=== PATIENT | male | born 1940 | race African-American/Black ===

== ENCOUNTER 2016-12-03 01:53 | Observation (INO) | payer MEDICARE, OTHER ==
[2016-12-03] VITALS (7 sets, daily range): BP systolic 132–162; BP diastolic 65–74; PULSE 18–86; RESP 16–20; TEMP 96.8–98.2; O2SAT 94–97
[~2016-12-03] VITALS: Ht 170.2 cm; Wt 80.0 kg
[~2016-12-03 01:53] MED LIST: ASPI81TA82 PO; ATEN1TAB74 PO; CANA300T PO; CIPR500T2 PO; GLUCTAB PO; HYDR-2768 PO; LOSA100T PO; NEXI40CA PO; ROSU40 PO; ZOFR4TAB3 SL
[2016-12-03] MEDS ORDERED: LOSA100T PO (02:08)
[2016-12-03] MEDS ORDERED: CANA300T PO (02:08)
[2016-12-03] MEDS ORDERED: MULT1TAB50 (02:08)
[2016-12-03] MEDS ORDERED: OMEP40CA2 PO (02:08)
[2016-12-03] MEDS ORDERED: POTA-255 PO (02:08)
[2016-12-03] MEDS ORDERED: ASPI81CH37 CHEW (02:08)
[2016-12-03] MEDS ORDERED: MONT10TA4 PO (02:08)
[2016-12-03] MEDS ORDERED: ATEN100T PO (02:08)
[2016-12-03] MEDS ORDERED: HYDR25TA5 PO (02:08)
[2016-12-03] MEDS ORDERED: METF1000 PO (02:08)
[2016-12-03] MEDS ORDERED: SODIUM CHLORIDE 0.9% FLUSH 10 ML FLUSH IVF PRN (02:30)
[2016-12-03] MEDS ORDERED: ASPIRIN 81 MG CHEW TAB PO ONE (02:30)
[2016-12-03 02:54] LABS: AUTOMATED NEUTROPHIL # 6.5 TH/MM3 (1.8-7.7); BASOPHIL # 0.1 TH/MM3 (0-0.2); BASOPHIL % 0.8 % (0.0-2.0); EOSINOPHIL # 0.1 TH/MM3 (0-0.4); EOSINOPHIL % 1.3 % (0.0-4.0); HEMATOCRIT 42.5 % (39.0-51.0); HEMO FLAGS DIFF FINAL; LYMPH % 23.5 % (9.0-44.0); LYMPHOCYTE # 2.3 TH/MM3 (1.0-4.8); MEAN CELL VOLUME 87.6 FL (80.0-100.0); MEAN CORPUSCULAR HEMOGLOBIN 29.8 PG (27.0-34.0); MONO % 8.8 % (0.0-8.0); NEUT % 65.6 % (16.0-70.0); PLATELET COUNT 267 TH/MM3 (150-450); RED BLOOD COUNT 4.85 MIL/MM3 (4.50-5.90); RED CELL DISTRIBUTION WIDTH 13.8 % (11.6-17.2); WHITE BLOOD COUNT 9.9 TH/MM3 (4.0-11.0)
--- NOTE | 2016-12-03 03:02 | RADRPT ---
EXAM DATE/TIME: 12/03/2016 02:23 [facility] COMPARISON: No previous studies available for comparison. INDICATIONS : Chest pain starting tonight. MEDICAL HISTORY : Diabetes mellitus type II. Hypertension Carcinoma, prostatic. GERD SURGICAL HISTORY : Prostatectomy. Inguinal hernia repair. ENCOUNTER: Initial ACUITY: 1 day PAIN SCORE: 6/10 LOCATION: Bilateral chest FINDINGS: A single view of the chest demonstrates the lungs to be symmetrically aerated without evidence of mas s, infiltrate or effusion. The cardiomediastinal contours are unremarkable. Osseous structures are intact. CONCLUSION: No acute disease. Jerardo Rojas MD on December 03, 2016 at 3:01 Board Certified Radiologist. This report was verified electronically.
[2016-12-03 03:09] LABS: ALT (GPT) 23 U/L (12-78); ANION GAP 8 MEQ/L (5-15); AST (GOT) 14 U/L (15-37); BICARBONATE 30.1 MEQ/L (21.0-32.0); BLOOD UREA NITROGEN 18 MG/DL (7-18); CHLORIDE 100 MEQ/L (98-107); GLOMERULAR FILTRATION RATE 73 ML/MIN (>89); MAGNESIUM 1.8 MG/DL (1.5-2.5); POTASSIUM 3.7 MEQ/L (3.5-5.1); SODIUM (NA) 138 MEQ/L (136-145)
[2016-12-03 03:13] LABS: APTT (PATIENT) 26.1 SEC (24.3-30.1); PROTHROMBIN TIME - PATIENT 10.8 SEC (9.8-11.6)
[2016-12-03 03:15] LABS: ALKALINE PHOSPHATASE 79 U/L (45-117); TOTAL BILIRUBIN ADULT 0.3 MG/DL (0.2-1.0)
--- NOTE | 2016-12-03 04:12 | PD ---
HPI Chief Complaint: Chest Pain Time Seen by Provider: 02:06 Travel History International Travel<30 days: No Contact w/Intl Traveler<30days: No Traveled to known affect area: No History of Present Illness HPI Is a 76-year-old man who presents to the emergency department complaining of chest pain in the mid part of his chest starting just tonight about 45 minutes prior to arrival. Improved some after belching. He does not have the pain now. He has no history of similar symptoms. No associated shortness of breath nausea vomiting or sweating. He does have a history of indigestion and reflux. He takes omeprazole. Otherwise has been feeling generally well and healthy. No history of heart disease. He does not smoke tobacco. His last stress test about a year or so ago with Dr. Atkinson. History Past Medical History Narrative Medical Hypertension Diabetes Hyperlipidemia GERD Tetanus Vaccination: Unknown Influenza Vaccination: Yes Social History Alcohol Use: No Tobacco Use: No Allergies-Medications (Allergen,Severity, Reaction): Coded Allergies: Nitroglycerin (Verified Adverse Reaction, Severe, HYPOTENSION W/ SL;; STATETS TOLERATES NITROPASTE OR PATCH, 12/03/16) Reported Meds & Prescriptions Reported Meds & Active Scripts Active Reported Potassium (Potassium Gluconate) 600 Mg Tablet 99 Mg PO DAILY Omeprazole 40 Mg Cap 40 Mg PO DAILY Centrum Men's Tablet (Multivit-Mins/Iron/Folic/Lycop) 1 Each Tablet Aspirin Low Dose (Aspirin) 81 Mg Chew 81 Mg CHEW DAILY Montelukast (Montelukast Sodium) 10 Mg Tab 10 Mg PO HS Invokana (Canagliflozin) 300 Mg Tab 300 Mg PO DAILY Take before 1st meal of day. Hydrochlorothiazide 25 Mg Tab 25 Mg PO DAILY Atenolol 100 Mg Tab 100 Mg PO DAILY Losartan (Losartan Potassium) 100 Mg Tab 100 Mg PO DAILY Metformin (Metformin HCl) 1,000 Mg Tab 1,000 Mg PO BIDPC With meals Review of Systems Except as stated in HPI: all other systems reviewed are Neg Physical Exam Narrative GENERAL: Well-appearing 76 year-old man, no acute distress. SKIN: Focused skin assessment warm/dry. HEAD: Atraumatic. Normocephalic. EYES: Pupils equal and round. No scleral icterus. No injection or drainage. ENT: No nasal bleeding or discharge. Mucous membranes pink and moist. NECK: Trachea midline. No JVD. CARDIOVASCULAR: Regular rate and rhythm. No murmur appreciated. RESPIRATORY: No accessory muscle use. Clear to auscultation. Breath sounds equal bilaterally. GASTROINTESTINAL: Abdomen soft, non-tender, nondistended. Hepatic and splenic margins not palpable. MUSCULOSKELETAL: No obvious deformities. No clubbing. No cyanosis. No edema. NEUROLOGICAL: Awake and alert. No obvious cranial nerve deficits. Motor grossly within normal limits. Normal speech. PSYCHIATRIC: Appropriate mood and affect; insight and judgment normal. Data Data Last Documented VS Vital Signs Date Time Temp Pulse Resp B/P Pulse Ox O2 Delivery O2 Flow Rate FiO2 12/03/16 02:03 16 12/03/16 01:56 98.1 86 162/74 97 Room Air Orders Electrocardiogram (12/03/16 02:19) Complete Blood Count With Diff (12/03/16 02:19) Comprehensive Metabolic Panel (12/03/16 02:19) Magnesium (Mg) (12/03/16 02:19) Prothrombin Time / Inr (Pt) (12/03/16 02:19) Act Partial Throm Time (Ptt) (12/03/16 02:19) Troponin I (12/03/16 02:19) Chest, Single Ap (12/03/16 02:19) Ecg Monitoring (12/03/16 02:19) Bilateral Bp Monitoring (12/03/16 02:19) Iv Access Insert/Monitor (12/03/16 02:19) Oximetry (12/03/16 02:19) Oxygen Administration (12/03/16 02:19) Aspirin Chew (Aspirin Chew) (12/03/16 02:30) Sodium Chloride 0.9% Flush (Ns Flush) (12/03/16 02:30) Labs Laboratory Tests Test 12/03/16 02:25 White Blood Count 9.9 TH/MM3 Red Blood Count 4.85 MIL/MM3 Hemoglobin 14.5 GM/DL Hematocrit 42.5 % Mean Corpuscular Volume 87.6 FL Mean Corpuscular Hemoglobin 29.8 PG Mean Corpuscular Hemoglobin 34.0 % Concent Red Cell Distribution Width 13.8 % Platelet Count 267 TH/MM3 Mean Platelet Volume 8.3 FL Neutrophils (%) (Auto) 65.6 % Lymphocytes (%) (Auto) 23.5 % Monocytes (%) (Auto) 8.8 % Eosinophils (%) (Auto) 1.3 % Basophils (%) (Auto) 0.8 % Neutrophils # (Auto) 6.5 TH/MM3 Lymphocytes # (Auto) 2.3 TH/MM3 Monocytes # (Auto) 0.9 TH/MM3 Eosinophils # (Auto) 0.1 TH/MM3 Basophils # (Auto) 0.1 TH/MM3 CBC Comment DIFF FINAL Differential Comment Prothrombin Time 10.8 SEC Prothromb Time International 1.0 RATIO Ratio Activated Partial 26.1 SEC Thromboplast Time Sodium Level 138 MEQ/L Potassium Level 3.7 MEQ/L Chloride Level 100 MEQ/L Carbon Dioxide Level 30.1 MEQ/L Anion Gap 8 MEQ/L Blood Urea Nitrogen 18 MG/DL Creatinine 1.18 MG/DL Estimat Glomerular Filtration 73 ML/MIN Rate Random Glucose 100 MG/DL Calcium Level 8.8 MG/DL Magnesium Level 1.8 MG/DL Total Bilirubin 0.3 MG/DL Aspartate Amino Transf 14 U/L (AST/SGOT) Alanine Aminotransferase 23 U/L (ALT/SGPT) Alkaline Phosphatase 79 U/L Troponin I LESS THAN 0.02 NG/ML Total Protein 7.4 GM/DL Albumin 3.5 GM/DL [facility] Medical Decision Making Medical Screen Exam Complete: Yes Emergency Medical Condition: Yes Interpretation(s) My review of EKG: My review of EKG: Normal sinus rhythm at a rate of 85, normal axis, borderline leftward axis, poor R-wave progression, no definite evidence of acute ischemia. LABS: CBC is unremarkable. CMP is unremarkable. Coags are unremarkable. Chest x-ray negative. Differential Diagnosis Chest pain, ACS, hepatobiliary disease, gastritis or reflux, pancreatitis, other Narrative Course Medical decision making the 76 year-old woman presents with chest pain, now resolved, mildly suspicious for ACS. Multiple risk factors. Overall looks well. Recommend admission to the chest pain Center for further evaluation. Diagnosis Primary Impression: Chest pain Admitting Information Admitting Physician Requests: Mitch Frederick MD Dec 03, 2016 04:12
[2016-12-03] MEDS ORDERED: SODIUM CHLORIDE 0.9% FLUSH 10 ML FLUSH IV FLUSH PRN (04:15)
[2016-12-03 08:07] LABS: CREATINE KINASE 86 U/L (39-308)
[2016-12-03] MEDS ORDERED: SODIUM CHLORIDE 0.9% FLUSH 10 ML FLUSH IV FLUSH SCH (09:00)
--- NOTE | 2016-12-03 09:13 | HHI.HP ---
HPI Primary Care Physician Juli Hernández MD Chief Complaint Chest pressure History of Present Illness 76-year-old male history of hypertension, diabetes, and hyperlipidemia presents to the emergency room for further evaluation of chest pressure. Onset last evening prior to going to bed. Location of sternal characterized as pressure. Severity was 6/10. Nonradiating. Duration approximately 1015 minutes. No associated symptoms. No known precipitating factors. Relieving factors he believes possibly belching. History of GERD follows with Dr. Chopra. Review of Systems General: No fatigue,weakness, fever, chills, recent illness, or change in appetite. Has been in his general state of health. HEENT: No HILARIO, no vision changes, no dysphasia CV: As stated above. No current chest pain or pressure. RESP: No SOB, cough, wheeze, recent URI, or history of asthma GI: No nausea, vomiting, bowel changes, diarrhea, constipation, pain, distention , melena, or blood in the stool. Recent endoscopic and colonoscopy with Dr. Chopra. No unintentional weight gain or weight loss. : No dysuria, urgency, frequency. History of prostate cancer (1999) in remission. EXT: No lower leg edema, no paraesthesias MS: No discomfort or change in ROM, rarely requires cane for ambulation. 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 No LOC or motor/sensory deficits. PSYCH: No anxiety, depression SKIN: No rashes, no concerning lesions Past Family Social History Allergies: Coded Allergies: Nitroglycerin (Verified Adverse Reaction, Severe, HYPOTENSION W/ SL;; STATETS TOLERATES NITROPASTE OR PATCH, 12/03/16) Past Medical History Diabetes, hypertension, hyperlipidemia, prostate cancer, GERD Past Surgical History Hernia repair, prostatectomy 1999 Reported Medications Reported Potassium (Potassium Gluconate) 600 Mg Tablet 99 Mg PO DAILY Omeprazole 40 Mg Cap 40 Mg PO DAILY Centrum Men's Tablet (Multivit-Mins/Iron/Folic/Lycop) 1 Each Tablet Aspirin Low Dose (Aspirin) 81 Mg Chew 81 Mg CHEW DAILY Montelukast (Montelukast Sodium) 10 Mg Tab 10 Mg PO HS Invokana (Canagliflozin) 300 Mg Tab 300 Mg PO DAILY Take before 1st meal of day. Hydrochlorothiazide 25 Mg Tab 25 Mg PO DAILY Atenolol 100 Mg Tab 100 Mg PO DAILY Losartan (Losartan Potassium) 100 Mg Tab 100 Mg PO DAILY Metformin (Metformin HCl) 1,000 Mg Tab 1,000 Mg PO BIDPC With meals Active Ordered Medications Current Medications Medications (Trade) Dose Ordered Sig/[place] Route Start Time Stop Time Status Last Admin (NS Flush) 2 ml UNSCH PRN IVF 12/03/16 02:30 (NS Flush) 2 ml UNSCH PRN IV FLUSH 12/03/16 04:15 (NS Flush) 2 ml BID IV FLUSH 12/03/16 09:00 Family History Neck her to be toward for early onset cardiovascular disease. Father age 59stroke. Mother age 86-cancer. Social History Known hypertension, hyperlipidemia, and diabetes. Lifelong nonsmoker. Denies any alcohol or illegal drug use. Past cardiac testing Lexiscan approximately one year agounremarkable. 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 Physical Exam Vital Signs Vital Signs Date Time Temp Pulse Resp B/P Pulse Ox O2 Delivery O2 Flow Rate FiO2 12/03/16 08:22 96.8 18 18 132/71 96 12/03/16 06:03 85 12/03/16 05:32 97.6 86 18 136/67 94 12/03/16 05:05 87 17 140/66 97 12/03/16 04:19 97 21 12/03/16 02:03 16 12/03/16 01:56 98.1 86 16 162/74 97 Room Air Physical Exam GENERAL: Alert WN, WD, NAD, pleasant, obese, Sarah male HEAD: NC, AT, balding EYES: Sclera clear, arcus and muddy. Conjunctiva without injection, pupils equal and round NECK: Supple, no masses, trachea midline CV: RRR, without murmur, rub, gallop, no JVD, S1-S2 no S3-S4. No carotid bruits. Left chest scar. RESP: Clear lungs throughout bilateral, no crackles, wheeze, rhonchi, symmetrical chest rise, nonlabored, able to speak in full sentences ABD: Soft, NT, ND, no masses, positive bowel tones, obese EXT: Pulses +24, no dependent edema MS: Normal tone 4 extremities, nontender, no obvious deformities, full range of motion NEURO: CN II through CN XII grossly intact, motor strength 5/5, gait WNL PSYCH: A+O 3, pleasant affect, appropriate speech, appropriate mood and affect , insight and judgment SKIN: Normal turgor, normal texture, no lesions, no rashes, brisk cap refill, even hair distribution Laboratory Laboratory Tests Test 12/03/16 12/03/16 02:25 05:08 White Blood Count 9.9 Red Blood Count 4.85 Hemoglobin 14.5 Hematocrit 42.5 Mean Corpuscular Volume 87.6 Mean Corpuscular Hemoglobin 29.8 Mean Corpuscular Hemoglobin 34.0 Concent Red Cell Distribution Width 13.8 Platelet Count 267 Mean Platelet Volume 8.3 Neutrophils (%) (Auto) 65.6 Lymphocytes (%) (Auto) 23.5 Monocytes (%) (Auto) 8.8 Eosinophils (%) (Auto) 1.3 Basophils (%) (Auto) 0.8 Neutrophils # (Auto) 6.5 Lymphocytes # (Auto) 2.3 Monocytes # (Auto) 0.9 Eosinophils # (Auto) 0.1 Basophils # (Auto) 0.1 CBC Comment DIFF FINAL Differential Comment Prothrombin Time 10.8 Prothromb Time International 1.0 Ratio Activated Partial 26.1 Thromboplast Time Sodium Level 138 Potassium Level 3.7 Chloride Level 100 Carbon Dioxide Level 30.1 Anion Gap 8 Blood Urea Nitrogen 18 Creatinine 1.18 Estimat Glomerular Filtration 73 Rate Random Glucose 100 Calcium Level 8.8 Magnesium Level 1.8 Total Bilirubin 0.3 Aspartate Amino Transf 14 (AST/SGOT) Alanine Aminotransferase 23 (ALT/SGPT) Alkaline Phosphatase 79 Troponin I LESS THAN 0.02 LESS THAN 0.02 Total Protein 7.4 Albumin 3.5 Total Creatine Kinase 86 Result Diagram: 12/03/1622412/03/16224 Imaging Last Impressions Chest X-Ray 12/03/16218 Signed Impressions: Service Date/Time: Saturday, December 03, 2016 02:23 - CONCLUSION: No acute disease. Jerardo Rojas MD Course EKG NSR, left axis deviation, non-specific T waves changes Assessment and Plan Assessment and Plan #1 Chest painadmitted chest pain center. Ruled out with 2 sets of EKGs and cardiac enzymes. Seen and evaluated by Dr. Obie Olivera. Will proceed with Lexiscan due to patient's reported difficulty with balance. If unremarkable will discharge later this afternoon. Patient agreeable to plan of care. #2 GERDcontinue omeprazole, follow up with #3 Diabeteshold oral anti-glycemic, SSI low dose #4 Hypertensioncontinue losartan, atenolol, HCTZ #5 Hyperlipidemiamedication not listed on med rec, will continue upon discharge Karon Weathers Dec 03, 2016 09:13
--- NOTE | 2016-12-03 09:22 | PD.CARD.PN ---
Subjective Subjective Remarks CARDIOLOGY ATTENDING NOTE DISCUSSED WITH LAVATORY ATTENDANT HPI: PLEASANT 76 YO BM DEVELOPED MID CHEST PRESSURE LAST NIGHT HE WAS GOING TO BED. HE HAS A LONG HX OF GERD FOLLOWED BY [facility]. THE PRESSURE WAS 6/10 MID CHEST NON RADIATING, LASTING ABOUT 10 MINUTES AND RELIEVED BY BELCHING. NO ASSOCIATED SYMPTOMS. IT WAS GONE BY THE TIME HE REACHED THE ED. HE WAS EVALUATED ABOUT A YEAR AGO BY DR. BARAJAS WITH A CHEM ETT WHICH WAS NEGATIVE. HOWEVER HE HAS A HX OF HTN, DM, LIPIDS SO AT RISK. O: GEN OBESE WNWD BM NAD HEENT BALDING, SCAR BEHIND L EAR, HEARING DEC L GEOVANNI EOMI EOL R&L ARCUS AND MUDDY NECK NO JVD, M, N, BRUITS CHEST SCAR L NO RWR CLEAR TO AP CV RSR, NO GRM ABD OBESE NO M, G, R EXT NO CCE NEURO BALANCE OFF A BIT SINCE SURGERY L EAR A; CP ATYPICAL BUT RO ACS GERD HTN DM CP ANGLE TUMOR L EAR 5 YRS AGO P: LUIS SINCE PT HAS POOR BALANCE IF NEG DISCH TO FO WITH GI, PCP Objective Vital Signs / I&O Vital Signs Date Time Temp Pulse Resp B/P Pulse Ox O2 Delivery O2 Flow Rate FiO2 12/03/16 08:22 96.8 18 18 132/71 96 12/03/16 06:03 85 12/03/16 05:32 97.6 86 18 136/67 94 12/03/16 05:05 87 17 140/66 97 12/03/16 04:19 97 21 12/03/16 02:03 16 12/03/16 01:56 98.1 86 16 162/74 97 Room Air I/O 12/02/16 12/02/16 12/02/16 12/03/16 12/03/16 12/03/16 07:00 15:00 23:00 07:00 15:00 23:00 Intake Total 0 ml Balance 0 ml Intake Oral 0 ml Laboratory Laboratory Tests Test 12/03/16 12/03/16 02:25 05:08 White Blood Count 9.9 TH/MM3 Red Blood Count 4.85 MIL/MM3 Hemoglobin 14.5 GM/DL Hematocrit 42.5 % Mean Corpuscular Volume 87.6 FL Mean Corpuscular Hemoglobin 29.8 PG Mean Corpuscular Hemoglobin 34.0 % Concent Red Cell Distribution Width 13.8 % Platelet Count 267 TH/MM3 Mean Platelet Volume 8.3 FL Neutrophils (%) (Auto) 65.6 % Lymphocytes (%) (Auto) 23.5 % Monocytes (%) (Auto) 8.8 % Eosinophils (%) (Auto) 1.3 % Basophils (%) (Auto) 0.8 % Neutrophils # (Auto) 6.5 TH/MM3 Lymphocytes # (Auto) 2.3 TH/MM3 Monocytes # (Auto) 0.9 TH/MM3 Eosinophils # (Auto) 0.1 TH/MM3 Basophils # (Auto) 0.1 TH/MM3 CBC Comment DIFF FINAL Differential Comment Prothrombin Time 10.8 SEC Prothromb Time International 1.0 RATIO Ratio Activated Partial 26.1 SEC Thromboplast Time Sodium Level 138 MEQ/L Potassium Level 3.7 MEQ/L Chloride Level 100 MEQ/L Carbon Dioxide Level 30.1 MEQ/L Anion Gap 8 MEQ/L Blood Urea Nitrogen 18 MG/DL Creatinine 1.18 MG/DL Estimat Glomerular Filtration 73 ML/MIN Rate Random Glucose 100 MG/DL Calcium Level 8.8 MG/DL Magnesium Level 1.8 MG/DL Total Bilirubin 0.3 MG/DL Aspartate Amino Transf 14 U/L (AST/SGOT) Alanine Aminotransferase 23 U/L (ALT/SGPT) Alkaline Phosphatase 79 U/L Troponin I LESS THAN 0.02 LESS THAN 0.02 NG/ML NG/ML Total Protein 7.4 GM/DL Albumin 3.5 GM/DL Total Creatine Kinase 86 U/L Obie Olivera MD Dec 03, 2016 09:22
--- NOTE | 2016-12-03 09:25 | EKG ---
Date Performed: 12/03/2016 Time Performed: 02:06:58 PTAGE: 76 years EKG: Sinus rhythm BORDERLINE LEFT AXIS DEVIATION NONSPECIFIC T-WAVE ABNORMALITY BORDERLINE ECG NO SIG CHANGE PREVIOUS TRACING : 03/24/2014 18.33 DOCTOR: Obie Olivera Interpretating Date/Time 12/03/2016 09:23:42
--- NOTE | 2016-12-03 09:26 | EKG ---
Date Performed: 12/03/2016 Time Performed: 05:13:40 PTAGE: 76 years EKG: Sinus rhythm LEFT AXIS DEVIATION MODERATE INTRAVENTRICULAR CONDUCTION DELAY NONSPECIFIC T-WAVE ABNORMALITY ABNORM AL ECG NO CHANGE PREVIOUS TRACING : 12/03/2016 02.06 DOCTOR: Obie Olivera Interpretating Date/Time 12/03/2016 09:25:25
[2016-12-03] MEDS ORDERED: PANTOPRAZOLE SOD 40 MG DELAYED RELEASE TAB PO SCH (09:30)
[2016-12-03] MEDS ORDERED: ATENOLOL 100 MG TAB PO SCH (09:30)
[2016-12-03] MEDS ORDERED: LOSARTAN 50 MG TAB PO SCH (09:30)
[2016-12-03] MEDS ORDERED: ONDANSETRON HCL 4 MG/2 ML VIAL IV PRN (09:30)
[2016-12-03] MEDS ORDERED: GLUCAGON 1 MG/ML VIAL OTHER PRN (09:30)
[2016-12-03] MEDS ORDERED: HYDROCHLOROTHIAZIDE 25 MG TAB PO SCH (09:30)
[2016-12-03] MEDS ORDERED: DEXTROSE 50% IN WATER 50 ML VIAL(D50) IV PRN (09:30)
[2016-12-03] MEDS ORDERED: ACETAMINOPHEN 500 MG CPLT PO PRN (09:30)
[2016-12-03 09:57] LABS: CREATINE KINASE 80 U/L (39-308)
[2016-12-03] MEDS ORDERED: REGADENOSON INJ 0.4 MG/5 ML SYR ONE (10:37)
[2016-12-03] MEDS ORDERED: INSULIN ASPART SUPPLEMENTAL SCALE SQ SCH (11:00)
--- NOTE | 2016-12-03 11:48 | RADRPT ---
EXAM DATE/TIME: 12/03/2016 10:02 [facility] COMPARISON: No previous studies available for comparison. INDICATIONS : Midchest pain. Angina. DOSE: 25.8 mCi Tc99m Myoview at stress. 8.1 mCi Tc99m Myoview at rest. 0.4 mg Lexiscan STRESS SYMPTOMS: Short of breath. EJECTION FRACTION: > 70% MEDICAL HISTORY : Hypertension. Carcinoma, prostate. Diabetes mellitus type 2. SURGICAL HISTORY : Inguinal hernia repair. Penile implant. ENCOUNTER: Initial ACUITY: 1 day PAIN SCALE: 3/10 LOCATION: Midsternal chest TECHNIQUE: The patient underwent pharmacologic stress with infusion of prescribed dose. Continuous ECG tracing was monitored during stress. Gated SPECT imaging was performed after stress and conventional SPECT i maging was performed at rest. The examination was performed on a SPECT/CT scanner, both attenuation and non-corrected datasets were reviewed. FINDINGS: DISTRIBUTION: The maximum perfused segment at stress is in the anterior wall. PERFUSION STUDY: The pattern of perfusion at stress is within normal limits. GATED STUDY: There is intact wall motion and thickening without hypokinetic or dyskinetic segments. CONCLUSION: Normal examination. RISK CATEGORY: Low (<1% Annual Mortality Rate) Chauncey Sanchez MD on December 03, 2016 at 11:46 Board Certified Radiologist. This report was verified electronically.
--- NOTE | 2016-12-03 12:03 | HHI.DCPOC ---
Discharge Care Plan Diagnosis: (1) Atypical chest pain (2) GERD (gastroesophageal reflux disease) Goals to Promote Your Health * To prevent worsening of your condition and complications * To maintain your health at the optimal level Directions to Meet Your Goals Take your medications as prescribed Follow your dietary instruction Follow activity as directed Keep your appointments as scheduled Take your immunizations and boosters as scheduled If your symptoms worsen call your PCP, if no PCP go to Urgent Care Center or Emergency Room Smoking is Dangerous to Your Health. Avoid second hand smoke Call the 24-hour hour crisis hotline for domestic abuse at Karon Weathers Dec 03, 2016 12:03
--- NOTE | 2016-12-03 15:41 | EKG ---
Date Performed: 12/03/2016 Time Performed: 08:45:44 PTAGE: 76 years EKG: Sinus rhythm MARKED LEFT AXIS DEVIATION NONSPECIFIC T-WAVE ABNORMALITY ABNORMAL ECG NO SIG CHANGE PREVIOUS TRACING : 12/03/2016 05.13 DOCTOR: Obie Olivera Interpretating Date/Time 12/03/2016 15:39:59
--- NOTE | 2016-12-03 15:47 | TR ---
Date Performed: 12/03/2016 Time Performed: 10:49:26 DOCTOR: Obie Olivera DRUG LIST: CLINICAL HISTORY: CHEST PAIN REASON FOR TEST: REASON FOR ENDING: OBSERVATION: CONCLUSION: Lexiscan stress test was performed under standard four minute protocol. Radionuclide was injected one minute prior to ending the test. No electrocardiographic abormalities were present to suggest ischemia. Nuclear imaging and interpretation are pending. COMMENTS:
[2016-12-03] MEDS ORDERED: MONTELUKAST SODIUM 10 MG TAB PO SCH (21:00)
[2016-12-04] MEDS ORDERED: ASPIRIN 325 MG TAB PO SCH (09:00)
== END 2016-12-03 13:01 | disposition home or self-care (01) ==
LOC: NEPC 01:53 → NEDA 04:13 → NEPGCP 05:25
PROVIDERS: ADMIT Internal Medicine Interventional Cardiology; ATTEND Internal Medicine Interventional Cardiology
DX: R07.89 Other chest pain (principal); R94.31 Abnormal electrocardiogram [ECG] [EKG]; R06.02 Shortness of breath; I10 Essential (primary) hypertension; I20.9 Angina pectoris, unspecified; E78.5 Hyperlipidemia, unspecified; E11.9 Type 2 diabetes mellitus without complications; K21.9 Gastro-esophageal reflux disease without esophagitis; K30 Functional dyspepsia; E66.9 Obesity, unspecified; Z85.46 Personal history of malignant neoplasm of prostate; Z79.899 Other long term (current) drug therapy; Z79.82 Long term (current) use of aspirin; Z79.84 Long term (current) use of oral hypoglycemic drugs
CPT/HCPCS: 71010; 78452; 80053; 82550; 82948; 83735; 84484; 85025; 85610; 85730; 93005; 93017; 99285; A9502; G0378; J2785